=== PATIENT | male | born 1985 | race Caucasian/White ===

== ENCOUNTER 2020-10-21 21:48 | Emergency (ER) | payer MEDICAID ==
[~2020-10-21] VITALS: Ht 172.7 cm; Wt 86.2 kg
[2020-10-21] MEDS ORDERED: SUBOXONE 8 MG-1 EAC1 SL (22:21)
[2020-10-21] MEDS ORDERED: ABILIFY10 MG PO (22:22)
== END 2020-10-21 22:50 | disposition home or self-care (01) ==
LOC: ED 21:48
DX: H93.8X3 Other specified disorders of ear, bilateral (principal); F17.200 Nicotine dependence, unspecified, uncomplicated
CPT/HCPCS: 99282